=== PATIENT | female | born 1960 | race Caucasian/White ===

== ENCOUNTER → 2021-07-17 | Outpatient (CLI) | payer OTHER ==
--- NOTE | 2021-07-17 16:49 | RAD ---
EXAM: US HEAD/NECK SOFT TISSUE. HISTORY: Palpable focus left lateral neck. COMPARISON: None. FINDINGS: Sonographic evaluation of the neck soft tissues was performed at the site of concern latera giuseppe. This reveals a normal-appearing lymph node measuring 9 x 7 x 6 mm. There is no suspicious sonogr aphic finding. IMPRESSION: 1. The palpable focus corresponds with a normal-appearing lymph node. Recommend ongoing clinical foll ow-up of palpable foci. Electronically signed by: Sadie Nunez MD (07/17/2021 4:46 PM) [id number]
== END ==
LOC: US 15:17
PROVIDERS: ATTEND Physician Assistant
DX: R59.9 Enlarged lymph nodes, unspecified (principal)
CPT/HCPCS: 76536